=== PATIENT | female | born 1995 | race Caucasian/White ===

== ENCOUNTER 2019-07-11 13:16 | Emergency (ER) | payer OTHER ==
[~2019-07-11] VITALS: Ht 162.5 cm; Wt 54.5 kg
[2019-07-11 14:15] LABS: BASOPHILS % (AUTO) 0 % (0-10); EOSINOPHILS % (AUTO) 0 % (0-10); HEMATOCRIT 36 % (35-52); HEMOGLOBIN 12.4 G/DL (11.5-16.0); LYMPHOCYTES # (AUTO) 0.6 X 10^3 (1.0-4.0); LYMPHOCYTES % (AUTO) 5 % (12-44); MEAN CORPUSCULAR HEMOGLOBIN 29 PG (25-34); MEAN CORPUSCULAR HGB CONC 34 G/DL (32-36); MEAN CORPUSCULAR VOLUME 86 FL (80-99); MEAN PLATELET VOLUME 9.8 FL (7.4-10.4); MONOCYTES # (AUTO) 0.2 X 10^3 (0.0-1.0); MONOCYTES % (AUTO) 2 % (0-12); NEUTROPHILS % (AUTO) 93 % (42-75); PLATELET COUNT 246 10^3/uL (130-400); RED CELL DISTRIBUTION WIDTH 14.7 % (10.0-14.5); WHITE BLOOD COUNT 10.8 10^3/uL (4.3-11.0)
[2019-07-11] MEDS ORDERED: ONDANSETRON 4 MG/2 ML (SDV) Z0FRAN IVP ONE (14:15)
[2019-07-11] MEDS ORDERED: NS IV 1000 ML 1,000 ML IV SCH (14:15)
[2019-07-11 14:27] LABS: ALBUMIN 5.1 GM/DL (3.2-4.5); CHLORIDE 104 MMOL/L (98-107); POTASSIUM 3.2 MMOL/L (3.6-5.0); SODIUM 136 MMOL/L (135-145)
[2019-07-11 14:28] LABS: AMYLASE 40 U/L (25-125)
[2019-07-11 14:29] LABS: CALCIUM 9.7 MG/DL (8.5-10.1)
[2019-07-11 14:30] LABS: GLUCOSE 113 MG/DL (70-105); TOTAL PROTEIN 8.2 GM/DL (6.4-8.2)
[2019-07-11 14:31] LABS: CARBON DIOXIDE 15 MMOL/L (21-32)
[2019-07-11 14:32] LABS: BILIRUBIN,TOTAL 1.2 MG/DL (0.1-1.0)
[2019-07-11 14:33] LABS: ALKALINE PHOSPHATASE 59 U/L (40-136)
[2019-07-11 14:34] LABS: CREATININE SERUM 0.76 MG/DL (0.60-1.30); GFR ESTIMATED > 60
[2019-07-11 14:35] LABS: BUN/CREATININE RATIO 13
[2019-07-11 14:36] LABS: ALANINE AMINOTRANSFERASE 15 U/L (0-55)
[2019-07-11 14:37] LABS: LIPASE 13 U/L (8-78)
--- NOTE | 2019-07-11 14:53 | ED Abdominal Pain ---
General Chief Complaint: Abdominal/GI Problems Stated Complaint: VOMITING Nursing Triage Note: AMB TO ED TEARFUL AND APPEARS TO BE HYPERVENTLATING REPORTS HAVING FOR 12 HRS. Sepsis Screen: No Definite Risk Source of Information: Patient Exam Limitations: No Limitations History of Present Illness Date Seen by Provider: Jul 11, 2019 Time Seen by Provider: 13:41 Initial Comments 24-year-old female who presents to the emergency room with complaints of having nausea and vomiting that started 12 hours ago. She reports that she is very anxious at this time her nausea and vomiting. She reports that she just started her period yesterday and believes that this is causing her vomiting. Denies any fevers or diarrhea. She reports mild lower pelvic abdominal cramping. Timing/Duration: 12 Hours Associated Symptoms: Nausea/Vomiting Allergies and Home Medications Allergies Coded Allergies: No Known Drug Allergies (Unverified , 07/11/19) Home Medications Ondansetron 4 Mg Tab.rapdis, 4 MG PO Q4H PRN for NAUSEA/VOMITING Prescribed by: KRISTAN PIMENTEL on 07/11/19 1553 Promethazine HCl 25 Mg Tablet, 25 MG PO Q8H PRN for NAUSEA/VOMITING Prescribed by: JILL BOLTON on 07/12/19 0733 Patient Home Medication List Home Medication List Reviewed: Yes Review of Systems Review of Systems Constitutional: see HPI; No chills, No fever Gastrointestinal: See HPI, Abdominal Pain, Nausea, Vomiting All Other Systems Reviewed Negative Unless Noted: Yes Past Ejrwpho-Tndrks-Qwqxiz Hx Past Med/Social Hx: Reviewed Nursing Past Med/Soc Hx Patient Social History Alcohol Use: Occasionally Uses Recreational Drug Use: No Smoking Status: Never a Smoker Recent Foreign Travel: No Contact w/Someone Who Travel: No Recent Infectious Disease Expo: No Past Medical History Surgeries: No Respiratory: No Cardiac: No Neurological: No Last Menstrual Period: Jul 11, 2019 Genitourinary: No Gastrointestinal: No Musculoskeletal: No Endocrine: No Cancer: No Psychosocial: Yes Anxiety, Depression Integumentary: No Family Medical History Reviewed Nursing Family Hx Physical Exam Vital Signs Vital Signs - First Documented 07/11/19 07/11/19 13:52 16:16 Temp 37.0 Pulse 62 Resp 18 B/P (MAP) 140/105 (117) Pulse Ox 100 O2 Delivery Room Air Capillary Refill : Less Than 3 Seconds Height/Weight/BMI Height: '" Weight: lbs. oz. kg; 20.00 BMI Method: General Appearance: WD/WN, no apparent distress Respiratory: chest non-tender, lungs clear, normal breath sounds, no respiratory distress, no accessory muscle use Cardiovascular: normal peripheral pulses, regular rate, rhythm, no edema, no gallop, no JVD, no murmur Gastrointestinal: normal bowel sounds, non tender, soft, no organomegaly, no pulsatile mass Extremities: normal capillary refill Neurologic/Psychiatric: alert, normal mood/affect, oriented x 3 Skin: normal color, warm/dry Progress/Results/Core Measures Results/Orders Lab Results Laboratory Tests Test 07/11/19 14:00 07/11/19 14:57 Range/Units White Blood Count 10.8 4.3-11.0 10^3/uL Red Blood Count 4.24 L 4.35-5.85 10^6/uL Hemoglobin 12.4 11.5-16.0 G/DL Hematocrit 36 35-52 % Mean Corpuscular Volume 86 80-99 FL Mean Corpuscular Hemoglobin 29 25-34 PG Mean Corpuscular Hemoglobin Concent 34 32-36 G/DL Red Cell Distribution Width 14.7 H 10.0-14.5 % Platelet Count 246 130-400 10^3/uL Mean Platelet Volume 9.8 7.4-10.4 FL Neutrophils (%) (Auto) 93 H 42-75 % Lymphocytes (%) (Auto) 5 L 12-44 % Monocytes (%) (Auto) 2 0-12 % Eosinophils (%) (Auto) 0 0-10 % Basophils (%) (Auto) 0 0-10 % Neutrophils # (Auto) 10.0 H 1.8-7.8 X 10^3 Lymphocytes # (Auto) 0.6 L 1.0-4.0 X 10^3 Monocytes # (Auto) 0.2 0.0-1.0 X 10^3 Eosinophils # (Auto) 0.0 0.0-0.3 10^3/uL Basophils # (Auto) 0.0 0.0-0.1 10^3/uL Neutrophils % (Manual) 94 % Lymphocytes % (Manual) 4 % Band Neutrophils 2 % Blood Morphology Comment NORMAL Sodium Level 136 135-145 MMOL/L Potassium Level 3.2 L 3.6-5.0 MMOL/L Chloride Level 104 98-107 MMOL/L Carbon Dioxide Level 15 L 21-32 MMOL/L Anion Gap 17 H 5-14 MMOL/L Blood Urea Nitrogen 10 7-18 MG/DL Creatinine 0.76 0.60-1.30 MG/DL Estimat Glomerular Filtration Rate > 60 BUN/Creatinine Ratio 13 Glucose Level 113 H 70-105 MG/DL Calcium Level 9.7 8.5-10.1 MG/DL Corrected Calcium 8.5-10.1 MG/DL Total Bilirubin 1.2 H 0.1-1.0 MG/DL Aspartate Amino Transf (AST/SGOT) 18 5-34 U/L Alanine Aminotransferase (ALT/SGPT) 15 0-55 U/L Alkaline Phosphatase 59 40-136 U/L Total Protein 8.2 6.4-8.2 GM/DL Albumin 5.1 H 3.2-4.5 GM/DL Amylase Level 40 25-125 U/L Lipase 13 8-78 U/L Urine Color YELLOW Urine Clarity CLEAR Urine pH 6.5 5-9 Urine Specific [place] 1.020 1.016-1.022 Urine Protein 2+ H NEGATIVE Urine Glucose (UA) NEGATIVE NEGATIVE Urine Ketones 3+ H NEGATIVE Urine Nitrite NEGATIVE NEGATIVE Urine Bilirubin 1+ H NEGATIVE Urine Urobilinogen 0.2 < = 1.0 MG/DL Urine Leukocyte Esterase NEGATIVE NEGATIVE Urine RBC (Auto) 3+ H NEGATIVE Urine RBC 2-5 H /HPF Urine WBC 5-10 H /HPF Urine Squamous Epithelial Cells 5-10 /HPF Urine Crystals NONE /LPF Urine Amorphous Sediment FEW LEYDA URATES H /LPF Urine Bacteria FEW H /HPF Urine Casts NONE /LPF Urine Mucus LARGE H /LPF Urine Culture Indicated YES Micro Results Microbiology 07/11/19 Urine Culture - Final, Complete 3 or more isolates My Orders Orders - KRISTAN PIMENTEL Comprehensive Metabolic Panel (07/11/19 13:41) Lipase (07/11/19 13:41) Amylase (07/11/19 13:41) Ua Culture If Indicated (07/11/19 13:41) Urine Bedside (07/11/19 13:41) Ed Iv/Invasive Line Start (07/11/19 13:41) Cbc With Automated Diff (07/11/19 13:41) Ondansetron Injection (Zofran Injectio (07/11/19 14:15) Ns Iv 1000 Ml (Sodium Chloride 0.9%) (07/11/19 14:15) Manual Differential (07/11/19 14:00) Promethazine Injection (Phenergan Injec (07/11/19 15:15) Urine Culture (07/11/19 14:57) Potassium Chloride (Tablet) (K Dur Table (07/11/19 16:00) Medications Given in ED Vital Signs/I&O 07/11/19 07/11/19 13:52 16:16 Temp 37.0 Pulse 62 62 Resp 18 18 B/P (MAP) 140/105 (117) 120/70 Pulse Ox 100 99 O2 Delivery Room Air Blood Pressure Mean: 117 Progress Progress Note : Time: 15:51 Progress Note I have seen and evaluated the patient. She reports symptoms have improved after phenergan and zofran. She agrees with plan of care, plans for discharge, return precautions were given. Departure Impression Primary Impression: Nausea and vomiting Additional Impression: Menstrual cramp Disposition: 01 HOME, SELF-CARE Condition: Stable/Unchanged Departure-Patient Inst. Decision time for Depature: 15:51 Patient Instructions: Menstrual Cramps, Nausea and Vomiting, Adult Add. Discharge Instructions: Take medications as directed. Drink plenty of fluids to stay hydrated. Follow-up with your primary care provider within 1 week for recheck. Return back to the emergency room for worsening symptoms or concerns as needed. All discharge instructions reviewed with patient and/or family. Voiced understanding. Scripts Promethazine HCl (Promethazine Tablet) 25 Mg Tablet 25 MG PO Q8H PRN for NAUSEA/VOMITING, #14 TAB 0 Refills Prov: JILL BOLTON MD 07/12/19 Ondansetron (Ondansetron Odt) 4 Mg Tab.rapdis 4 MG PO Q4H PRN for NAUSEA/VOMITING for 10 Days, #30 TAB 0 Refills Prov: KRISTAN PIMENTEL 07/11/19 KRISTAN PIMENTEL Jul 11, 2019 14:53
[2019-07-11 15:03] LABS: BILIRUBIN,URINE 1+ (NEGATIVE); CLARITY,URINE CLEAR; COLOR,URINE YELLOW; GLUCOSE, URINE (UA) NEGATIVE (NEGATIVE); KETONES,URINE 3+ (NEGATIVE); LEUKOCYTE ESTERASE ,URINE NEGATIVE (NEGATIVE); NITRITE,URINE NEGATIVE (NEGATIVE); PH,URINE 6.5 (5-9); PROTEIN,URINE 2+ (NEGATIVE)
[2019-07-11 15:04] LABS: BAND NEUTROPHILS 2 %; LYMPHOCYTES % (MANUAL) 4 %; NEUTROPHILS % (MANUAL) 94 %
[2019-07-11 15:05] LABS: RBC MORPH NORMAL
[2019-07-11] MEDS ORDERED: PROMETHAZINE INJ 25 MG/ML (PHENERGAN) AMP IVP ONE (15:15)
[2019-07-11 15:20] LABS: AMORPHOUS SEDIMENT,UR FEW AMOR URATES /LPF; BACTERIA,URINE FEW /HPF
[2019-07-11] MEDS ORDERED: ONDA4TAB11 PO (15:53)
[2019-07-11] MEDS ORDERED: KCL 20 MEQ TAB (K-DUR) PO ONE (16:00)
[2019-07-11 16:16] VITALS: BP 120/70
[2019-07-12] MEDS ORDERED: PROM25TA14 PO (07:33)
== END 2019-07-11 16:21 | disposition home or self-care (01) ==
LOC: ER 13:17
DX: N94.6 Dysmenorrhea, unspecified (principal)
CPT/HCPCS: 36415; 80053; 81000; 82150; 83690; 84703; 85007; 85027; 87088

== ENCOUNTER 2020-01-06 12:20 | Emergency (ER) | payer OTHER ==
[~2020-01-06] VITALS: Ht 170.6 cm; Wt 47.6 kg
[~2020-01-06 12:20] MED LIST: ONDA4TAB11 PO; PROM25TA14 PO
--- NOTE | 2020-01-06 12:51 | ED Psychosocial ---
General Stated Complaint: SUICIDAL IDATIONS Source: patient Exam Limitations: no limitations History of Present Illness Date Seen by Provider: Jan 06, 2020 Time Seen by Provider: 12:51 Initial Comments This is a tearful 24-year-old female who presents to the ER with thoughts of suicidal ideation. She has a significant history of depression and has recently been changed from Zoloft to Lexapro over the past week. Reports over the past couple months she has been having increasing thoughts of depression which she attributes to increased stress with school and work. Has 2 suicide attempts in the past, one in April 2017 where she overdosed on pills and again in May 2017 at which time she cut her wrist. States she has a bottle of trazodone underneath her kitchen sink "just in case", that she has not been able to let herself throw away. Additionally, she states she has had thoughts of parking her car in front of a train track and waiting for a train to hit her car; and also wandering off into the [place] until she was too tired to find her way back home. Denies fevers, chills, cough, shortness of breath, abdominal pain, nausea, vomiting, diarrhea. Today she has an active plan of going home and taking her Trazodone pills. No homicidal ideation. Timing/Duration: just prior to arrival Severity: severe Associated Symptoms: anxiety, impaired concentration, suicidal ideation Allergies and Home Medications Allergies Coded Allergies: No Known Drug Allergies (Unverified , 07/11/19) Home Medications Ondansetron 4 Mg Tab.rapdis, 4 MG PO Q4H PRN for NAUSEA/VOMITING Prescribed by: KRISTAN PIMENTEL on 07/11/19 4960 Promethazine HCl 25 Mg Tablet, 25 MG PO Q8H PRN for NAUSEA/VOMITING Prescribed by: JILL BOLTON on 07/12/19 3035 Patient Home Medication List Home Medication List Reviewed: Yes Review of Systems Constitutional: see HPI EENTM: no symptoms reported Respiratory: no symptoms reported Cardiovascular: no symptoms reported Gastrointestinal: no symptoms reported Genitourinary: no symptoms reported Control/STD Prophylaxis: BC Pills Musculoskeletal: no symptoms reported Skin: no symptoms reported Psychiatric/Neurological: See HPI, Anxiety, Depressed Past Zrwbrhp-Ojdnkr-Qvvsvz Hx Past Medical History Surgeries: No Respiratory: No Cardiac: No Neurological: No Genitourinary: No Gastrointestinal: No Musculoskeletal: No Endocrine: No Cancer: No Psychosocial: Yes Anxiety, Depression Integumentary: No Physical Exam Vital Signs - First Documented 01/06/20 01/06/20 13:02 18:51 Temp 36.9 Pulse 96 Resp 20 B/P (MAP) 140/90 (107) Pulse Ox 100 O2 Delivery Room Air Capillary Refill : Height, Weight, BMI Height: '" Weight: lbs. oz. kg; 20.00 BMI Method: General Appearance: WD/WN, no apparent distress HEENT: PERRL/EOMI, normal ENT inspection Neck: full range of motion, normal inspection Respiratory: chest non-tender, lungs clear, normal breath sounds, no respiratory distress Cardiovascular: regular rate, rhythm, no murmur Gastrointestinal: normal bowel sounds, non tender, soft Extremities: normal range of motion, non-tender, normal inspection, no pedal edema, normal capillary refill Neurologic/Psychiatric: no motor/sensory deficits, alert, normal mood/affect, oriented x 3 Appearance/Memory: appropriate appearance, appropriate insight, denies illness Behavior/Eye Contact: cooperative, good eye contact, normal speech, other (tearful ) Skin: normal color, warm/dry Progress/Results/Core Measures Results/Orders Lab Results Laboratory Tests Test 01/06/20 12:57 01/06/20 14:04 01/06/20 17:35 Range/Units White Blood Count 6.7 4.3-11.0 10^3/uL Red Blood Count 4.22 3.80-5.11 10^6/uL Hemoglobin 12.4 11.5-16.0 g/dL Hematocrit 39 35-52 % Mean Corpuscular Volume 92 80-99 fL Mean Corpuscular Hemoglobin 29 25-34 pg Mean Corpuscular Hemoglobin Concent 32 32-36 g/dL Red Cell Distribution Width 12.5 10.0-14.5 % Platelet Count 262 130-400 10^3/uL Mean Platelet Volume 9.4 9.0-12.2 fL Immature Granulocyte % (Auto) 0 % Neutrophils (%) (Auto) 63 42-75 % Lymphocytes (%) (Auto) 26 12-44 % Monocytes (%) (Auto) 6 0-12 % Eosinophils (%) (Auto) 4 0-10 % Basophils (%) (Auto) 1 0-10 % Neutrophils # (Auto) 4.2 1.8-7.8 10^3/uL Lymphocytes # (Auto) 1.8 1.0-4.0 10^3/uL Monocytes # (Auto) 0.4 0.0-1.0 10^3/uL Eosinophils # (Auto) 0.3 0.0-0.3 10^3/uL Basophils # (Auto) 0.1 0.0-0.1 10^3/uL Immature Granulocyte # (Auto) 0.0 0.0-0.1 10^3/uL Sodium Level 139 135-145 MMOL/L Potassium Level 3.8 3.6-5.0 MMOL/L Chloride Level 105 98-107 MMOL/L Carbon Dioxide Level 23 21-32 MMOL/L Anion Gap 11 5-14 MMOL/L Blood Urea Nitrogen 13 7-18 MG/DL Creatinine 0.73 0.60-1.30 MG/DL Estimat Glomerular Filtration Rate > 60 BUN/Creatinine Ratio 18 Glucose Level 82 70-105 MG/DL Calcium Level 8.7 8.5-10.1 MG/DL Corrected Calcium 8.5 8.5-10.1 MG/DL Total Bilirubin 0.3 0.1-1.0 MG/DL Aspartate Amino Transf (AST/SGOT) 14 5-34 U/L Alanine Aminotransferase (ALT/SGPT) 10 0-55 U/L Alkaline Phosphatase 50 40-136 U/L Total Protein 7.3 6.4-8.2 GM/DL Albumin 4.3 3.2-4.5 GM/DL Salicylates Level < 5.0 L 5.0-20.0 MG/DL Acetaminophen Level < 10 L 10-30 UG/ML Serum Alcohol < 10 <10 MG/DL Urine Color YELLOW Urine Clarity CLEAR Urine pH 6.5 5-9 Urine Specific [place] 1.010 L 1.016-1.022 Urine Protein NEGATIVE NEGATIVE Urine Glucose (UA) NEGATIVE NEGATIVE Urine Ketones NEGATIVE NEGATIVE Urine Nitrite NEGATIVE NEGATIVE Urine Bilirubin NEGATIVE NEGATIVE Urine Urobilinogen 0.2 < = 1.0 MG/DL Urine Leukocyte Esterase NEGATIVE NEGATIVE Urine RBC (Auto) NEGATIVE NEGATIVE Urine RBC RARE /HPF Urine WBC RARE /HPF Urine Squamous Epithelial Cells 2-5 /HPF Urine Crystals NONE /LPF Urine Bacteria NEGATIVE /HPF Urine Casts NONE /LPF Urine Mucus NEGATIVE /LPF Urine Culture Indicated NO Urine Test NEGATIVE NEGATIVE Urine Opiates Screen NEGATIVE NEGATIVE Urine Oxycodone Screen NEGATIVE NEGATIVE Urine Methadone Screen NEGATIVE NEGATIVE Urine Propoxyphene Screen NEGATIVE NEGATIVE Urine Barbiturates Screen NEGATIVE NEGATIVE Ur Tricyclic Antidepressants Screen NEGATIVE NEGATIVE Urine Phencyclidine Screen NEGATIVE NEGATIVE Urine Amphetamines Screen NEGATIVE NEGATIVE Urine Methamphetamines Screen NEGATIVE NEGATIVE Urine Benzodiazepines Screen NEGATIVE NEGATIVE Urine Cocaine Screen NEGATIVE NEGATIVE Urine Cannabinoids Screen POSITIVE H NEGATIVE Coronavirus 2019 (JANNA) Negative Negative My Orders Orders - AMBROCIO GRAVES CLAY [employer] OPERATOR Ua Culture If Indicated (01/06/20 12:46) Cbc With Automated Diff (01/06/20 12:46) Comprehensive Metabolic Panel (01/06/20 12:46) Alcohol (01/06/20 12:46) Drug Screen Stat (Urine) (01/06/20 12:46) Acetaminophen (01/06/20 12:46) Salicylate (01/06/20 12:46) Ekg Tracing (01/06/20 12:46) Hcg,Qualitative Urine (01/06/20 12:46) General/Regular (01/06/20 Lunch) Ibuprofen Tablet (Motrin Tablet) (01/06/20 16:15) Covid 19 Inhouse Test (01/06/20 18:02) Medications Given in ED Current Medications Medications Dose Ordered Sig/Trudi Route Start Time Stop Time Status Last Admin Dose Admin Ibuprofen 400 mg ONCE ONCE PO 01/06/20 16:15 01/06/20 16:16 DC 01/06/20 17:45 400 MG Vital Signs/I&O 01/06/20 01/06/20 01/06/20 13:02 18:51 19:40 Temp 36.9 37.0 37.0 Pulse 96 73 73 Resp 20 16 16 B/P (MAP) 140/90 (107) 139/85 139/85 Pulse Ox 100 99 99 O2 Delivery Room Air Progress Progress Note : Progress Note Initiated medical screen upon ED arrival. Labs and UA reviewed and are unremarkable. RN called [facility] for screening. [facility] reviewed case with local inpatient psychiatric facilities. 183: Patient was accepted at [facility] in [facility]. No doctor to doct or required. Dr. Loredo accepting provider. Departure Impression Primary Impression: Suicidal ideation Additional Impression: Depression Disposition: XFER SHT-TRM HOSP Condition: Stable/Unchanged Transfer Transfer Reason: Exceeds level of care Time Spoke to Accepting Phy: 18:[address] Loredo at [facility] accepting patient transfer. Discharged with secure transport with Daniela Whitman. Transfer Time: 19:37 Transfer Facility: [place], [place] Method of Transfer: Secured Departure-Patient Inst. Decision time for Depature: 18:00 Referrals: NO,LOCAL PHYSICIAN (PCP/Family) Primary Care Physician Patient Instructions: Depression, Adult (DC), Suicide Prevention AMBROCIO GRAVES CLAY [employer] OPERATOR Jan 06, 2020 12:51
[2020-01-06 13:10] LABS: BASOPHILS # (AUTO) 0.1 10^3/uL (0.0-0.1); BASOPHILS % (AUTO) 1 % (0-10); EOSINOPHILS # (AUTO) 0.3 10^3/uL (0.0-0.3); EOSINOPHILS % (AUTO) 4 % (0-10); HEMATOCRIT 39 % (35-52); HEMOGLOBIN 12.4 g/dL (11.5-16.0); LYMPHOCYTES # (AUTO) 1.8 10^3/uL (1.0-4.0); LYMPHOCYTES % (AUTO) 26 % (12-44); MEAN CORPUSCULAR HEMOGLOBIN 29 pg (25-34); MEAN CORPUSCULAR HGB CONC 32 g/dL (32-36); MEAN CORPUSCULAR VOLUME 92 fL (80-99); MEAN PLATELET VOLUME 9.4 fL (9.0-12.2); MONOCYTES # (AUTO) 0.4 10^3/uL (0.0-1.0); MONOCYTES % (AUTO) 6 % (0-12); NEUTROPHILS # (AUTO) 4.2 10^3/uL (1.8-7.8); NEUTROPHILS % (AUTO) 63 % (42-75); PLATELET COUNT 262 10^3/uL (130-400); WHITE BLOOD COUNT 6.7 10^3/uL (4.3-11.0)
[2020-01-06 13:20] LABS: ALBUMIN 4.3 GM/DL (3.2-4.5); CHLORIDE 105 MMOL/L (98-107); POTASSIUM 3.8 MMOL/L (3.6-5.0); SODIUM 139 MMOL/L (135-145)
[2020-01-06 13:21] LABS: CALCIUM 8.7 MG/DL (8.5-10.1)
[2020-01-06 13:23] LABS: GLUCOSE 82 MG/DL (70-105); TOTAL PROTEIN 7.3 GM/DL (6.4-8.2)
[2020-01-06 13:24] LABS: BILIRUBIN,TOTAL 0.3 MG/DL (0.1-1.0); CARBON DIOXIDE 23 MMOL/L (21-32)
[2020-01-06 13:26] LABS: ALKALINE PHOSPHATASE 50 U/L (40-136); CREATININE SERUM 0.73 MG/DL (0.60-1.30); GFR ESTIMATED > 60
[2020-01-06 13:28] LABS: BUN/CREATININE RATIO 18
[2020-01-06 13:29] LABS: SALICYLATE < 5.0 MG/DL (5.0-20.0)
[2020-01-06 13:30] LABS: ACETAMINOPHEN < 10 UG/ML (10-30); ALANINE AMINOTRANSFERASE 10 U/L (0-55)
[2020-01-06 14:11] LABS: BILIRUBIN,URINE NEGATIVE (NEGATIVE); CLARITY,URINE CLEAR; COLOR,URINE YELLOW; GLUCOSE, URINE (UA) NEGATIVE (NEGATIVE); KETONES,URINE NEGATIVE (NEGATIVE); LEUKOCYTE ESTERASE ,URINE NEGATIVE (NEGATIVE); NITRITE,URINE NEGATIVE (NEGATIVE); PH,URINE 6.5 (5-9); PROTEIN,URINE NEGATIVE (NEGATIVE)
[2020-01-06 14:14] LABS: HCG,QUALITATIVE URINE NEGATIVE (NEGATIVE)
[2020-01-06 14:17] LABS: BACTERIA,URINE NEGATIVE /HPF; RBC,URINE RARE /HPF; WBC,URINE RARE /HPF
[2020-01-06 14:28] LABS: AMPHETAMINE SCREEN, URINE NEGATIVE (NEGATIVE); BARBITURATE SCREEN URINE NEGATIVE (NEGATIVE); BENZODIAZEPINES SCREEN URINE NEGATIVE (NEGATIVE); CANNABINOID SCREEN, URINE POSITIVE (NEGATIVE); COCAINE SCREEN URINE NEGATIVE (NEGATIVE); METHADONE STAT NEGATIVE (NEGATIVE); METHAMPHETAMINE SCREEN URINE S NEGATIVE (NEGATIVE); OPIATE SCREEN URINE NEGATIVE (NEGATIVE); OXYCODONE STAT NEGATIVE (NEGATIVE); PROPOXYPHENE STAT NEGATIVE (NEGATIVE); TRICYCLIC ANTIDEPRESSANTS SCRE NEGATIVE (NEGATIVE)
--- NOTE | 2020-01-06 15:20 | NUR ---
Patient using Zoom to speak with THerapist.
[2020-01-06] MEDS ORDERED: IBUPROFEN TABLET 200 MG TAB PO ONE (16:15)
--- NOTE | 2020-01-06 16:45 | NUR ---
Nursing notified waiting on intake
--- NOTE | 2020-01-06 18:00 | NUR ---
patient on phone with tano key
[2020-01-06 19:40] VITALS: BP 139/85
== END 2020-01-06 19:40 ==
LOC: EDUNIT# 12:20 → ER 12:21
DX: R45.851 Suicidal ideations (principal); F32.9 Major depressive disorder, single episode, unspecified; Z20.828 Contact with and (suspected) exposure to other viral communicable diseases
CPT/HCPCS: 80053; 80306; 81000; 84703; 85025; 99283; G0480 ×3; U0002; 36415; 80320; 80329; 87635; 93005

== ENCOUNTER 2020-03-13 21:48 | Emergency (ER) | payer OTHER ==
[~2020-03-13] VITALS: Ht 162 cm; Wt 49.8 kg
[2020-03-13 22:49] LABS: BASOPHILS # (AUTO) 0.1 10^3/uL (0.0-0.1); BASOPHILS % (AUTO) 1 % (0-10); EOSINOPHILS # (AUTO) 0.4 10^3/uL (0.0-0.3); EOSINOPHILS % (AUTO) 7 % (0-10); HEMATOCRIT 34 % (35-52); HEMOGLOBIN 11.1 g/dL (11.5-16.0); LYMPHOCYTES # (AUTO) 2.5 10^3/uL (1.0-4.0); LYMPHOCYTES % (AUTO) 44 % (12-44); MEAN CORPUSCULAR HEMOGLOBIN 30 pg (25-34); MEAN CORPUSCULAR HGB CONC 32 g/dL (32-36); MEAN CORPUSCULAR VOLUME 92 fL (80-99); MEAN PLATELET VOLUME 9.5 fL (9.0-12.2); MONOCYTES # (AUTO) 0.5 10^3/uL (0.0-1.0); MONOCYTES % (AUTO) 8 % (0-12); NEUTROPHILS # (AUTO) 2.2 10^3/uL (1.8-7.8); NEUTROPHILS % (AUTO) 39 % (42-75); PLATELET COUNT 310 10^3/uL (130-400); WHITE BLOOD COUNT 5.7 10^3/uL (4.3-11.0)
[2020-03-13 22:55] LABS: BILIRUBIN,URINE NEGATIVE (NEGATIVE); CLARITY,URINE CLEAR; COLOR,URINE YELLOW; GLUCOSE, URINE (UA) NEGATIVE (NEGATIVE); KETONES,URINE NEGATIVE (NEGATIVE); LEUKOCYTE ESTERASE ,URINE NEGATIVE (NEGATIVE); NITRITE,URINE NEGATIVE (NEGATIVE); PROTEIN,URINE NEGATIVE (NEGATIVE)
[2020-03-13 22:59] LABS: CHLORIDE 108 MMOL/L (98-107); SODIUM 140 MMOL/L (135-145)
[2020-03-13 23:00] LABS: ALBUMIN 4.2 GM/DL (3.2-4.5)
[2020-03-13 23:01] LABS: CALCIUM 9.3 MG/DL (8.5-10.1)
[2020-03-13 23:02] LABS: BACTERIA,URINE NEGATIVE /HPF; SQUAMOUS EPITHELIAL CELL,UR 0-2 /HPF; WBC,URINE 0-2 /HPF
[2020-03-13 23:02] LABS: GLUCOSE 90 MG/DL (70-105); TOTAL PROTEIN 6.7 GM/DL (6.4-8.2)
[2020-03-13 23:03] LABS: CARBON DIOXIDE 23 MMOL/L (21-32)
[2020-03-13 23:04] LABS: BILIRUBIN,TOTAL 0.4 MG/DL (0.1-1.0)
[2020-03-13 23:06] LABS: ALKALINE PHOSPHATASE 48 U/L (40-136); GFR ESTIMATED > 60
[2020-03-13 23:07] LABS: BUN/CREATININE RATIO 14
[2020-03-13 23:07] LABS: AMPHETAMINE SCREEN, URINE NEGATIVE (NEGATIVE); BARBITURATE SCREEN URINE NEGATIVE (NEGATIVE); BENZODIAZEPINES SCREEN URINE NEGATIVE (NEGATIVE); CANNABINOID SCREEN, URINE NEGATIVE (NEGATIVE); COCAINE SCREEN URINE NEGATIVE (NEGATIVE); METHADONE STAT NEGATIVE (NEGATIVE); METHAMPHETAMINE SCREEN URINE S NEGATIVE (NEGATIVE); OPIATE SCREEN URINE NEGATIVE (NEGATIVE); OXYCODONE STAT NEGATIVE (NEGATIVE); PROPOXYPHENE STAT NEGATIVE (NEGATIVE); TRICYCLIC ANTIDEPRESSANTS SCRE NEGATIVE (NEGATIVE)
[2020-03-13 23:09] LABS: ALANINE AMINOTRANSFERASE 11 U/L (0-55); SALICYLATE < 5.0 MG/DL (5.0-20.0)
[2020-03-13 23:19] LABS: ACETAMINOPHEN < 10 UG/ML (10-30)
--- NOTE | 2020-03-13 23:21 | ED Psychosocial ---
General Chief Complaint: Psych/Social Disorder Stated Complaint: SUICIDAL Nursing Triage Note: pt presents to ed from home with complaints of increased depression and suicidal ideation x 1 week. pt reports she last had in patient psych treatment 12/28-01/27 at [facility]. Pt reports she stopped taking her psych meds in the beggining of January because she doesnt like the way they make her feel. Pt reports she has had thoughts of overdosing on Tylenol. Source: patient Exam Limitations: no limitations History of Present Illness Date Seen by Provider: Mar 13, 2020 Time Seen by Provider: 22:36 Initial Comments Patient arrives ER by private conveyance with chief complaint several weeks of depression and suicidal ideation. She has a plan to take all the Tylenol in her house. She has been doing some self-mutilation by cutting on her left forearm but nowhere else. She is not having any hallucinations or homicidal thoughts just suicidal thoughts and morbid ideation. She says is been going on for years and she has been treated by her primary care doctor with Lexapro. She says the Lexapro was giving her insomnia so she went to [facility] in December 2019 but they did not take her off her Lexapro so she self discontinued the medication about a month ago. She has not seen anybody else for help since then. She is not in counseling. She is a student [employer] originally from [place]. Allergies and Home Medications Allergies Coded Allergies: No Known Drug Allergies (Unverified , 07/11/19) Home Medications Ondansetron 4 Mg Tab.rapdis, 4 MG PO Q4H PRN for NAUSEA/VOMITING Prescribed by: KRISTAN PIMENTEL on 07/11/19 3105 Promethazine HCl 25 Mg Tablet, 25 MG PO Q8H PRN for NAUSEA/VOMITING Prescribed by: JILL BOLTON on 07/12/19 6192 Patient Home Medication List Home Medication List Reviewed: Yes Review of Systems Constitutional: No chills, No diaphoresis EENTM: No ear discharge, No ear pain Respiratory: No cough, No short of breath Cardiovascular: No edema, No Hx of Intervention, No palpitations Gastrointestinal: No abdominal pain, No nausea, No vomiting Genitourinary: No discharge, No dysuria : No Control/STD Prophylaxis: None Musculoskeletal: No back pain, No joint pain Psychiatric/Neurological: Anxiety, Depressed All Other Systems Reviewed Negative Unless Noted: Yes Past Rnqezqv-Oljyhm-Xpmyad Hx Patient Social History Alcohol Use: Denies Use Drug of Choice: marijuana- last used 12/28 Smoking Status: Never a Smoker Recent Infectious Disease Expo: No Past Medical History Surgeries: Yes (wisdon teeth) Respiratory: No Cardiac: No Neurological: No Genitourinary: No Gastrointestinal: No Musculoskeletal: No Endocrine: No Cancer: No Psychosocial: Yes Anxiety, PTSD, Depression Integumentary: No Blood Disorders: No Adverse Reaction/Blood Tranf: No Physical Exam Vital Signs - First Documented 03/13/20 22:26 Temp 36.3 Pulse 83 Resp 16 B/P (MAP) 123/75 (91) Pulse Ox 95 Capillary Refill : Less Than 3 Seconds Height, Weight, BMI Height: '" Weight: lbs. oz. kg; 18.00 BMI Method: General Appearance: WD/WN, mild distress HEENT: PERRL/EOMI, pharynx normal Neck: full range of motion, normal inspection Respiratory: no respiratory distress, no accessory muscle use Cardiovascular: normal peripheral pulses, regular rate, rhythm Neurologic/Psychiatric: alert, oriented x 3, other (Depressed affect, occasionally tearful, endorsing suicidal ideation) Appearance/Memory: appropriate appearance, appropriate insight Behavior/Eye Contact: cooperative, good eye contact, normal speech Thoughts/Hallucinations: normal thought pattern, no apparent hallucination Skin: normal color, warm/dry, other (Approximately 10 superficial abrasions on the left palmar wrist) Progress/Results/Core Measures Results/Orders Lab Results Laboratory Tests Test 03/13/20 22:36 03/13/20 22:49 03/13/20 23:06 Range/Units White Blood Count 5.7 4.3-11.0 10^3/uL Red Blood Count 3.74 L 3.80-5.11 10^6/uL Hemoglobin 11.1 L 11.5-16.0 g/dL Hematocrit 34 L 35-52 % Mean Corpuscular Volume 92 80-99 fL Mean Corpuscular Hemoglobin 30 25-34 pg Mean Corpuscular Hemoglobin Concent 32 32-36 g/dL Red Cell Distribution Width 13.4 10.0-14.5 % Platelet Count 310 130-400 10^3/uL Mean Platelet Volume 9.5 9.0-12.2 fL Immature Granulocyte % (Auto) 0 % Neutrophils (%) (Auto) 39 L 42-75 % Lymphocytes (%) (Auto) 44 12-44 % Monocytes (%) (Auto) 8 0-12 % Eosinophils (%) (Auto) 7 0-10 % Basophils (%) (Auto) 1 0-10 % Neutrophils # (Auto) 2.2 1.8-7.8 10^3/uL Lymphocytes # (Auto) 2.5 1.0-4.0 10^3/uL Monocytes # (Auto) 0.5 0.0-1.0 10^3/uL Eosinophils # (Auto) 0.4 H 0.0-0.3 10^3/uL Basophils # (Auto) 0.1 0.0-0.1 10^3/uL Immature Granulocyte # (Auto) 0.0 0.0-0.1 10^3/uL Sodium Level 140 135-145 MMOL/L Potassium Level 4.0 3.6-5.0 MMOL/L Chloride Level 108 H 98-107 MMOL/L Carbon Dioxide Level 23 21-32 MMOL/L Anion Gap 9 5-14 MMOL/L Blood Urea Nitrogen 10 7-18 MG/DL Creatinine 0.70 0.60-1.30 MG/DL Estimat Glomerular Filtration Rate > 60 BUN/Creatinine Ratio 14 Glucose Level 90 70-105 MG/DL Calcium Level 9.3 8.5-10.1 MG/DL Corrected Calcium 9.1 8.5-10.1 MG/DL Total Bilirubin 0.4 0.1-1.0 MG/DL Aspartate Amino Transf (AST/SGOT) 14 5-34 U/L Alanine Aminotransferase (ALT/SGPT) 11 0-55 U/L Alkaline Phosphatase 48 40-136 U/L Total Protein 6.7 6.4-8.2 GM/DL Albumin 4.2 3.2-4.5 GM/DL Salicylates Level < 5.0 L 5.0-20.0 MG/DL Acetaminophen Level < 10 L 10-30 UG/ML Serum Alcohol < 10 <10 MG/DL Urine Color YELLOW Urine Clarity CLEAR Urine pH 7.0 5-9 Urine Specific [place] 1.010 L 1.016-1.022 Urine Protein NEGATIVE NEGATIVE Urine Glucose (UA) NEGATIVE NEGATIVE Urine Ketones NEGATIVE NEGATIVE Urine Nitrite NEGATIVE NEGATIVE Urine Bilirubin NEGATIVE NEGATIVE Urine Urobilinogen 0.2 < = 1.0 MG/DL Urine Leukocyte Esterase NEGATIVE NEGATIVE Urine RBC (Auto) NEGATIVE NEGATIVE Urine RBC NONE /HPF Urine WBC 0-2 /HPF Urine Squamous Epithelial Cells 0-2 /HPF Urine Crystals NONE /LPF Urine Bacteria NEGATIVE /HPF Urine Casts NONE /LPF Urine Mucus NEGATIVE /LPF Urine Culture Indicated NO Urine Test NEGATIVE NEGATIVE Urine Opiates Screen NEGATIVE NEGATIVE Urine Oxycodone Screen NEGATIVE NEGATIVE Urine Methadone Screen NEGATIVE NEGATIVE Urine Propoxyphene Screen NEGATIVE NEGATIVE Urine Barbiturates Screen NEGATIVE NEGATIVE Ur Tricyclic Antidepressants Screen NEGATIVE NEGATIVE Urine Phencyclidine Screen NEGATIVE NEGATIVE Urine Amphetamines Screen NEGATIVE NEGATIVE Urine Methamphetamines Screen NEGATIVE NEGATIVE Urine Benzodiazepines Screen NEGATIVE NEGATIVE Urine Cocaine Screen NEGATIVE NEGATIVE Urine Cannabinoids Screen NEGATIVE NEGATIVE Coronavirus 2019 (JANNA) Negative Negative My Orders Orders - KAN TABARES Ua Culture If Indicated (03/13/20 22:15) Cbc With Automated Diff (03/13/20 22:15) Comprehensive Metabolic Panel (03/13/20 22:15) Alcohol (03/13/20 22:15) Drug Screen Stat (Urine) (03/13/20 22:15) Acetaminophen (03/13/20 22:15) Salicylate (03/13/20 22:15) Ekg Tracing (03/13/20 22:15) Monitor-Rhythm Ecg Trace Only (03/13/20 22:15) Bh Status Checks/Observation Q15M (03/13/20 22:15) Covid 19 Inhouse Test (03/13/20 23:04) Hcg,Qualitative Urine (03/13/20 23:05) Lorazepam Injection (Ativan Injection) (03/13/20 23:30) Lorazepam Tablet (Ativan Tablet) (03/13/20 23:45) Lorazepam Tablet (Ativan Tablet) (03/13/20 23:33) Medications Given in ED Current Medications Medications Dose Ordered Sig/Trudi Route Start Time Stop Time Status Last Admin Dose Admin Lorazepam 0.5 mg ONCE ONCE PO 03/13/20 23:45 03/13/20 23:46 DC 03/13/20 23:37 0.5 MG Vital Signs/I&O 03/13/20 22:26 Temp 36.3 Pulse 83 Resp 16 B/P (MAP) 123/75 (91) Pulse Ox 95 Blood Pressure Mean: 91 Progress Progress Note #1: Time: 23:24 Progress Note Suicidal ideation with a stated plan. We will attempt to find her some i npatient placement which is what she desires. She is voluntary at this time. Covid is pending but the rest of her labs are unremarkable. EKG unremarkable. Progress Note #2: Time: 23:57 Progress Note Hayden: No availability, call back after 10. Tanvi: No availability, call back after 10 AM. Faxed information to [facility]. Progress Note #3: Time: 05:44 Progress Note Patient has been sleeping, easily arousable, cooperative and without hallucination. She still endorses her voluntary wishes to go inpatient. Expect private conveyance to arrive in the next 15 minutes. She has been dressed and is ready to go. Initial ECG Impression Date: Mar 13, 2020 Initial ECG Impression Time: 22:42 Initial ECG Rate: 55 Initial ECG Rhythm: Normal Sinus Initial ECG Intervals: Normal Initial ECG Impression: Normal Initial ECG Comparisson: No Previous ECG Available Comment Normal sinus rhythm without clinically relevant ST changes. Departure Impression Primary Impression: Suicidal ideation Additional Impression: Depression Qualified Codes: F32.9 - Major depressive disorder, single episode, unspecified Disposition: 65 XFER TO PSYCH HOSP/UNIT Condition: Stable Transfer Transfer Reason: Exceeds level of care Time Spoke to Accepting Phy: 01:[address] Ritchie Branham at [place], [place] accepts the patient for inpatient psychiatric care. Daniela Whitman agrees to transport. Plans to be here around 0600. Transfer Time: 06:00 Transfer Facility: [place], [place]. Method of Transfer: Private Vehicle Departure-Patient Inst. Referrals: NO,LOCAL PHYSICIAN (PCP/Family) Primary Care Physician Work/School Note: Work Release Form Date Seen in the Emergency Department: Mar 14, 2020 Return to Work: Mar 18, 2020 Restrictions: No Restrictions KAN TABARES Mar 13, 2020 23:21
[2020-03-13] MEDS ORDERED: LORazepam INJ 2 MG/ML (ATIVAN) VIAL IVP ONE (23:30)
[2020-03-13] MEDS ORDERED: LORazepam 0.5 MG (ATIVAN) TABLET ONE (23:33)
[2020-03-13] MEDS ORDERED: LORazepam 0.5 MG (ATIVAN) TABLET PO ONE (23:45)
--- NOTE | 2020-03-14 00:25 | NUR ---
PT CHART SENT TO [facility] IN [place], [place] FOR REVIEW FOR POSSIBLE ADMITTANCE.
--- NOTE | 2020-03-14 01:18 | NUR ---
NAYELI WITH [facility] CALLED TO INFORM PT HAS BEEN ACCEPTED BY DR. ZARINA FERGUSON. ROOM #302.2. RN TO RN REPORT [phone]. DR. TABARES NOTIFIED.
--- NOTE | 2020-03-14 01:39 | NUR ---
BUNNY BOWMAN, SECURE TRANSPORT, NOTIFIED OF NEED OF TRANSFER TO [facility] IN [place], [place]. BUNNY STATES HE WILL BE ABLE TO TAKE PT APPROX 0600. DR. TABARES NOTIFIED.
[2020-03-14 05:59] VITALS: BP 102/64
--- NOTE | 2020-03-14 05:59 | NUR ---
BUNNY BOWMAN, SECURE TRANSPORT, HERE AT THIS TIME FOR TRANSPORT TO [place], [place]. ALL BELONGINGS WITH PT ON TRANSPORT FROM ER.
== END 2020-03-14 05:59 ==
LOC: EDUNIT# 21:48 → ER 21:50
DX: S51.802A Unspecified open wound of left forearm, initial encounter (principal); R45.851 Suicidal ideations; F32.9 Major depressive disorder, single episode, unspecified; T43.226A Underdosing of selective serotonin reuptake inhibitors, initial encounter; F43.10 Post-traumatic stress disorder, unspecified; Z91.14 Patient's other noncompliance with medication regimen; Z20.822 Contact with and (suspected) exposure to COVID-19; Z32.02 Encounter for pregnancy test, result negative; X78.9XXA Intentional self-harm by unspecified sharp object, initial encounter
CPT/HCPCS: 80053; 80306; 81000; 84703; 85025; 93005; 93041; 99283; G0480 ×3; U0002; 36415; 80320; 80329; 87635

== ENCOUNTER 2020-10-03 14:23 | Emergency (ER) | payer OTHER ==
--- OUTSIDE RECORDS SUMMARY | 2020-10-03 14:28 | XMS REPORT | Clinical Summary ---
Author Author [facility] Address Unknown Phone Unavailable Care Team Providers Care Digital Photographic Printer Name Role Phone Unassigned, None PCP Unavailable Allergies No known active allergies Medications End Date Status Medication Sig Dispensed Refills Start Date Active calcium carbonate (TUMS) Chew 1 tablet 0 01/08 500 MG chewable tablet (500 mg 0 total) daily as needed for Heartburn. Active pantoprazole (PROTONIX) Take 1 tablet 30 tablet 0 40 MG tabletIndications: (40 mg total) 0 Gastroesophageal Reflux by mouth Disease every morning before breakfast. 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 Depressive Disorder Indications: Generalized Anxiety Disorder, Major Depressive Disorder Active Problems Problem Noted Date PTSD (post-traumatic stress disorder) 01/11/2020 COLTEN (generalized anxiety disorder) 01/10/2020 Suicidal ideation 01/10/2020 Cannabis use disorder, moderate, dependence 01/08/20 20 History of gastritis 01/08/2020 Overview: Formatting of this note might be differ ent from the original. Had EGD during summer in [facility] showing nonspecific gastritis Psychophysiological insomnia 01/08/2020 Intractable nausea and vomiting 01/07/2020 Severe episode of recurrent major depressive disorder , without psychotic 01/07/2020 features Cannabis hyperemesis syndrome concurrent with and due to cannabis abuse 01/07/2020 Resolved Problems Problem Noted Date Resolved Date Hypokalemia 01/08/2020 01/08/2020 Metabolic acidosis 01/08/2020 01/08/2020 Social History Date Tobacco Use Types Packs/Day Years Used Never Smoker Smokeless Tobacco: Never Used Comments Alcohol Use Standard Drinks/Week Never 0 (1 standard drink = 0.6 o z pure alcohol) Alcohol Habits Answer Date Recorded How often do you have a drink containing alcohol? Never 01/07/2020 How many drinks containing alcohol do you have on No t asked a typical day when you are drinking? How often do you have six or more drinks on one Not asked occasion? Control Partners Comments Sexually Active Male Yes Sex Assigned at Date Recorded Female 01/11/2020 1:29 AM [employer] Industry Job Start Date Occupation Not on file Not on file Not on file Last Filed Vital Signs Reading Time Taken Comments Vital Sign 156/87 01/11/2020 10:15 AM [employer] WORK[employer] Blood Pressure 89 01/11/2020 10:15 AM [employer]ARE WORKER Pulse 37.2 C (98.9 F) 01/11/2020 7:43 AM [employer]ARE WORKER Temperature 18 01/11/2020 10:15 AM [employer]ARE WORKER Respiratory Rate 100% 01/11/2020 7:43 AM TARE WORKER Oxygen Saturation - - Inhaled Oxygen Concentration 54.4 kg (120 lb) 01/10/2020 8:07 PM TARE WORKER Weight 162.6 cm (5' 4") 01/10/2020 8:07 PM [employer]ARE WORKER Height 20.6 01/10/2020 8:07 PM TARE WORKER Body Mass Index Plan of Treatment Health Maintenance Due Date Last Done Comments HPV Vaccines (1 - 2-dose 2008 series) COVID-19 Vaccine (1) 2009 Hepatitis C Screening 06/27/2015 DTaP,Tdap,and Td Vaccines 2016 (1 - Tdap) MMR Vaccines-Adult 2016 Cervical Cancer Screening 2018 Influenza Vaccine (#1) 2020 10/05/2019, 11/24/2018, 03/07/2018, Additional history exists Pneumo-Vaccine: 65+Yrs (1 2062 of 1 - PPSV23) Varicella Vaccines Completed 09/12/1998, 07/11/1998 HIB Vaccines Aged Out No longer eligible based on patient's age to complete this topic IPV Vaccines Aged Out No longer eligible based on patient's age to complete this topic MenB Vaccine (Bexsero) Aged Out No longer eligi ble based on patient's age to complete this topic Meningococcal Vaccine Aged Out No longer eligib le based on patient's age to complete this topic Pneumo-Vaccine: Peds (0-5 Aged Out No longer el igible based on patient's age to Yrs) & At-Risk Patients complete this topic (6-64 Yrs) Rotavirus Vaccines Aged Out No longer eligible based on patient's age to complete this topic Results Not on filefrom Last 3 Months Insurance Type Payer Benefit Subscriber ID Effective Phone Address Plan / Dates Group UMR UMR [id number] 2019-P [phone] [address] [address] [place] [address] Advance Directives For more information, please contact: [phone] Patient Payroll Director Explanation Type Date Recorded Advance Directives and Living Will Power of Surveillance Manager Date Inactivated Comments Code Status Date Activated Full Code 01/11/2020 2:28 PM 01/11/2020 2:28 PM Full Code 01/10/2020 8:45 PM 01/10/2020 7:49 PM Full Code 01/10/2020 1:43 PM 01/10/2020 1:43 PM Full Code 01/08/2020 10:21 AM 01/08/2020 10:21 AM Full Code 01/07/2020 1:46 AM Care Teams Start Date End Date Digital Photographic Printer Relationship Specialty 01/10/20 Unassigned, None PCP - General [place]
== END 2020-10-03 15:10 | disposition left against medical advice (07) ==
LOC: EDUNIT# 14:23 → ER 14:24
DX: R45.851 Suicidal ideations (principal)

== ENCOUNTER 2021-03-21 15:35 | Emergency (ER) | payer OTHER ==
[~2021-03-21] VITALS: Ht 167 cm; Wt 51.0 kg
--- NOTE | 2021-03-21 15:56 | ED Abdominal Pain ---
General Chief Complaint: Abdominal/GI Problems Stated Complaint: SYNCOPE Source of Information: Patient Exam Limitations: No Limitations History of Present Illness Date Seen by Provider: Mar 21, 2021 Time Seen by Provider: 15:53 Initial Comments To ER with reports of syncope with nausea vomiting. She has been having some epigastric and right upper quadrant abdominal pain. No fever no chills. She does smoke marijuana. She has a history of cyclic vomiting syndrome. She has noticed some association between marijuana use and vomiting. Timing/Duration: 1-2 Days Severity/Quality: Moderate Location: RUQ, Epigastric Radiation: No Radiation Activities at Onset: None Associated Symptoms: Nausea/Vomiting Allergies and Home Medications Allergies Coded Allergies: No Known Drug Allergies (Unverified , 07/11/19) Patient Home Medication List Home Medication List Reviewed: Yes Ondansetron (Ondansetron Odt) 4 Mg Tab.rapdis, 4 MG PO Q4H PRN for NAUSEA/VOMITING Prescribed by: KRISTAN PIMENTEL on 07/11/19 1553 Prochlorperazine Maleate (Compazine) 10 Mg Tablet, 10 MG PO TID PRN for NAUSEA/VOMITING Prescribed by: PUNEET BOLAÑOS on 03/21/21 1718 Promethazine HCl (Promethazine Tablet) 25 Mg Tablet, 25 MG PO Q8H PRN for NAUSEA/VOMITING Prescribed by: JILL BOLTON on 07/12/19 0733 Review of Systems Review of Systems Constitutional: see HPI EENTM: No Symptoms Reported Respiratory: No Symptoms Reported Cardiovascular: No Symptoms Reported Gastrointestinal: See HPI, Abdominal Pain, Nausea, Vomiting Genitourinary: No Symptoms Reported Musculoskeletal: no symptoms reported Skin: no symptoms reported Psychiatric/Neurological: No Symptoms Reported Endocrine: No Symptoms Reported Hematologic/Lymphatic: No Symptoms Reported Past Liylrot-Lwlcij-Shppsv Hx Patient Social History Tobacco Use?: No Substance use?: Yes Substance type: Marijuana Alcohol Use?: No Past Medical History Surgeries: Yes (wisdon teeth) Respiratory: No Cardiac: No Neurological: No Genitourinary: No Gastrointestinal: No Musculoskeletal: No Endocrine: No Cancer: No Psychosocial: Yes Anxiety, PTSD, Depression Integumentary: No Blood Disorders: No Adverse Reaction/Blood Tranf: No Physical Exam Vital Signs Capillary Refill : Height/Weight/BMI Height: '" Weight: lbs. oz. kg; 18.00 BMI Method: General Appearance: WD/WN, no apparent distress, other (She had a liter of IV fluids initiated by EMS but has not yet had nausea medication or pain medication. Given her history of recurrent nausea vomiting abdominal pain associate with marijuana use droperidol is very effective for that. We will give her low-dose at 1.5 mg IV push and see if this helps with her symptoms.) Neck: non-tender, full range of motion Respiratory: normal breath sounds, no respiratory distress, no accessory muscle use Gastrointestinal: normal bowel sounds, soft, tenderness Neurologic/Psychiatric: alert, normal mood/affect, oriented x 3 Skin: normal color, warm/dry Progress/Results/Core Measures Results/Orders Lab Results Laboratory Tests Test 03/21/21 16:00 03/21/21 16:40 Range/Units White Blood Count 7.6 4.3-11.0 10^3/uL Red Blood Count 3.47 L 3.80-5.11 10^6/uL Hemoglobin 9.9 L 11.5-16.0 g/dL Hematocrit 30 L 35-52 % Mean Corpuscular Volume 86 80-99 fL Mean Corpuscular Hemoglobin 29 25-34 pg Mean Corpuscular Hemoglobin Concent 33 32-36 g/dL Red Cell Distribution Width 14.3 10.0-14.5 % Platelet Count 241 130-400 10^3/uL Mean Platelet Volume 9.7 9.0-12.2 fL Immature Granulocyte % (Auto) 0 % Neutrophils (%) (Auto) 84 H 42-75 % Lymphocytes (%) (Auto) 12 12-44 % Monocytes (%) (Auto) 4 0-12 % Eosinophils (%) (Auto) 0 0-10 % Basophils (%) (Auto) 0 0-10 % Neutrophils # (Auto) 6.3 1.8-7.8 X 10^3 Lymphocytes # (Auto) 0.9 L 1.0-4.0 X 10^3 Monocytes # (Auto) 0.3 0.0-1.0 X 10^3 Eosinophils # (Auto) 0.0 0.0-0.3 10^3/uL Basophils # (Auto) 0.0 0.0-0.1 10^3/uL Immature Granulocyte # (Auto) 0.0 0.0-0.1 10^3/uL Sodium Level 135 135-145 MMOL/L Potassium Level 3.0 L 3.6-5.0 MMOL/L Chloride Level 103 98-107 MMOL/L Carbon Dioxide Level 22 21-32 MMOL/L Anion Gap 10 5-14 MMOL/L Blood Urea Nitrogen 11 7-18 MG/DL Creatinine 0.64 0.60-1.30 MG/DL Estimat Glomerular Filtration Rate 127 BUN/Creatinine Ratio 17 Glucose Level 101 70-105 MG/DL Calcium Level 8.7 8.5-10.1 MG/DL Corrected Calcium 8.5 8.5-10.1 MG/DL Total Bilirubin 0.7 0.1-1.0 MG/DL Aspartate Amino Transf (AST/SGOT) 13 5-34 U/L Alanine Aminotransferase (ALT/SGPT) 10 0-55 U/L Alkaline Phosphatase 46 40-136 U/L Total Protein 6.7 6.4-8.2 GM/DL Albumin 4.2 3.2-4.5 GM/DL Lipase 22 8-78 U/L Serum Test, Qualitative NEGATIVE NEGATIVE Urine Color YELLOW Urine Clarity CLEAR Urine pH 7.5 5-9 Urine Specific Roberta 1.010 L 1.016-1.022 Urine Protein NEGATIVE NEGATIVE Urine Glucose (UA) NEGATIVE NEGATIVE Urine Ketones NEGATIVE NEGATIVE Urine Nitrite NEGATIVE NEGATIVE Urine Bilirubin NEGATIVE NEGATIVE Urine Urobilinogen 1.0 < = 1.0 MG/DL Urine Leukocyte Esterase NEGATIVE NEGATIVE Urine RBC (Auto) NEGATIVE NEGATIVE Urine RBC NONE /HPF Urine WBC 0-2 /HPF Urine Crystals PRESENT H /LPF Urine Amorphous Sediment MOD LEYDA PHOSPHATE H /LPF Urine Bacteria TRACE /HPF Urine Casts NONE /LPF Urine Mucus NEGATIVE /LPF Urine Culture Indicated NO Urine Opiates Screen NEGATIVE NEGATIVE Urine Oxycodone Screen NEGATIVE NEGATIVE Urine Methadone Screen NEGATIVE NEGATIVE Urine Propoxyphene Screen NEGATIVE NEGATIVE Urine Barbiturates Screen NEGATIVE NEGATIVE Ur Tricyclic Antidepressants Screen NEGATIVE NEGATIVE Urine Phencyclidine Screen NEGATIVE NEGATIVE Urine Amphetamines Screen NEGATIVE NEGATIVE Urine Methamphetamines Screen NEGATIVE NEGATIVE Urine Benzodiazepines Screen NEGATIVE NEGATIVE Urine Cocaine Screen NEGATIVE NEGATIVE Urine Cannabinoids Screen POSITIVE H NEGATIVE My Orders Orders - PUNEET BOLAÑOS [employer]RECTION[employer]OOK Ua Culture If Indicated (03/21/21 15:48) Hcg,Qualitative Serum (03/21/21 15:48) Cbc With Automated Diff (03/21/21 15:48) Comprehensive Metabolic Panel (03/21/21 15:48) Lipase (03/21/21 15:48) Ed Iv/Invasive Line Start (03/21/21 15:48) Droperidol Inj (Ed Only) (Inapsine Inj ( (03/21/21 16:00) Us Gallbladder [id number] (03/21/21 15:56) Drug Screen Stat (Urine) (03/21/21 16:40) Lorazepam Injection (Ativan Injection) (03/21/21 16:45) Medications Given in ED Current Medications Medications Dose Ordered Sig/Trudi Route Start Time Stop Time Status Last Admin Dose Admin Droperidol 1.5 mg ONCE ONCE IV 03/21/21 16:00 03/21/21 16:01 DC 03/21/21 16:05 1.5 MG Lorazepam 1 mg ONCE PRN IVP 03/21/21 16:45 03/21/21 16:57 1 MG Departure Communication (Admissions) Family Conversation [id number] this time after 1.5 mg of IV droperidol, 1 L of LR and 1 mg of IV lorazepam she reports that she is feeling "a lot better". We will discharged home. Discussed with her the likely relationship of the marijuana use that is pretty frequent to her recurrent symptoms. She states that hot showers do help. NAME: DENIS [facility]U [facility] REC#: [id number] PT STATUS: REG ER : 1995 PHYSICIAN: PUNEET BOLAÑOS APRN ADMIT DATE: 03/21/21/ER Signed Date of Exam:03/21/21 US GALLBLADDER [id number] PROCEDURE: US Gallbladder. TECHNIQUE: Multiple real-time grayscale images were obtained over the right upper quadrant in various projections. INDICATION: Liver appears normal. Portal vein is patent with hepatopetal flow. The gallbladder is clear with no stones or wall thickening. The common duct is not dilated. The pancreas appears normal. Aorta and IVC appear normal. Right kidney measures 10.5 cm length and appears normal. There is no ascites. IMPRESSION: Unremarkable gallbladder ultrasound Dictated by: Dictated on workstation # [id number] Dict: 03/21/[id number] Trans: 03/21/211650 TCB [id number] Interpreted by: JILL ROMEO MD Electronically signed by: JILL ROMEO MD 02/11/22 1651 Impression Primary Impression: Nausea and vomiting Additional Impression: Abdominal pain Disposition: HOME, SELF-CARE Condition: Stable Departure-Patient Inst. Decision time for Depature: 16:59 Referrals: NO,LOCAL PHYSICIAN (PCP/Family) Primary Care Physician Patient Instructions: No Instuctions Given Add. Discharge Instructions: 1. There is a pretty common condition called hyperemesis cannabinoid syndrome (you can google this). It tends to present with recurrent nausea and vomiting as well as abdominal pain and is associated with excess marijuana use. Try to reduce your marijuana intake. Many people noticed that hot showers are helpful. Another helpful thing to do is to rub some topical capsaicin cream on the abdominal wall. Follow-up with your doctor next week. Return to ER for any concerns. All discharge instructions reviewed with patient and/or family. Voiced understanding. Scripts Prochlorperazine Maleate (Compazine) 10 Mg Tablet 10 MG PO TID PRN for NAUSEA/VOMITING, #14 TAB Prov: PUNEET BOLAÑOS APRN 03/21/21 Work/School Note: Work Release Form Date Seen in the Emergency Department: Mar 21, 2021 Return to Work: Mar 23, 2021 PUNEET BOLAÑOS APRN Mar 21, 2021 15:56
[2021-03-21] MEDS ORDERED: DROPERIDOL 5 MG/2 ML (INAPSINE) ED ONLY! IV ONE (16:00)
[2021-03-21 16:06] LABS: BASOPHILS % (AUTO) 0 % (0-10); EOSINOPHILS % (AUTO) 0 % (0-10); HEMATOCRIT 30 % (35-52); HEMOGLOBIN 9.9 g/dL (11.5-16.0); LYMPHOCYTES # (AUTO) 0.9 X 10^3 (1.0-4.0); LYMPHOCYTES % (AUTO) 12 % (12-44); MEAN CORPUSCULAR HEMOGLOBIN 29 pg (25-34); MEAN CORPUSCULAR HGB CONC 33 g/dL (32-36); MEAN CORPUSCULAR VOLUME 86 fL (80-99); MEAN PLATELET VOLUME 9.7 fL (9.0-12.2); MONOCYTES # (AUTO) 0.3 X 10^3 (0.0-1.0); MONOCYTES % (AUTO) 4 % (0-12); NEUTROPHILS # (AUTO) 6.3 X 10^3 (1.8-7.8); NEUTROPHILS % (AUTO) 84 % (42-75); PLATELET COUNT 241 10^3/uL (130-400); WHITE BLOOD COUNT 7.6 10^3/uL (4.3-11.0)
[2021-03-21 16:16] LABS: ALBUMIN 4.2 GM/DL (3.2-4.5)
[2021-03-21 16:17] LABS: CALCIUM 8.7 MG/DL (8.5-10.1)
[2021-03-21 16:18] LABS: TOTAL PROTEIN 6.7 GM/DL (6.4-8.2)
[2021-03-21 16:20] LABS: BILIRUBIN,TOTAL 0.7 MG/DL (0.1-1.0)
[2021-03-21 16:22] LABS: CREATININE SERUM 0.64 MG/DL (0.60-1.30)
[2021-03-21] MEDS ORDERED: LORazepam INJ 2 MG/ML (ATIVAN) VIAL IVP PRN (16:45)
[2021-03-21 16:46] LABS: BILIRUBIN,URINE NEGATIVE (NEGATIVE); CLARITY,URINE CLEAR; COLOR,URINE YELLOW; GLUCOSE, URINE (UA) NEGATIVE (NEGATIVE); KETONES,URINE NEGATIVE (NEGATIVE); LEUKOCYTE ESTERASE ,URINE NEGATIVE (NEGATIVE); NITRITE,URINE NEGATIVE (NEGATIVE); PH,URINE 7.5 (5-9); PROTEIN,URINE NEGATIVE (NEGATIVE)
--- NOTE | 2021-03-21 16:52 | Diagnostic Imaging Report ---
PROCEDURE: US Gallbladder. TECHNIQUE: Multiple real-time grayscale images were obtained over the right upper quadrant in various projections. INDICATION: Liver appears normal. Portal vein is patent with hepatopetal flow. The gallbladder is clear with no stones or wall thickening. The common duct is not dilated. The pancreas appears normal. Aorta and IVC appear normal. Right kidney measures 10.5 cm length and appears normal. There is no ascites. IMPRESSION: Unremarkable gallbladder ultrasound Dictated by: Dictated on workstation # [id number]
[2021-03-21 17:09] LABS: AMORPHOUS SEDIMENT,UR MOD AMOR PHOSPHATE /LPF; BACTERIA,URINE TRACE /HPF; WBC,URINE 0-2 /HPF
[2021-03-21 17:11] LABS: AMPHETAMINE SCREEN, URINE NEGATIVE (NEGATIVE); BARBITURATE SCREEN URINE NEGATIVE (NEGATIVE); BENZODIAZEPINES SCREEN URINE NEGATIVE (NEGATIVE); CANNABINOID SCREEN, URINE POSITIVE (NEGATIVE); COCAINE SCREEN URINE NEGATIVE (NEGATIVE); METHADONE STAT NEGATIVE (NEGATIVE); METHAMPHETAMINE SCREEN URINE S NEGATIVE (NEGATIVE); OPIATE SCREEN URINE NEGATIVE (NEGATIVE); OXYCODONE STAT NEGATIVE (NEGATIVE); PROPOXYPHENE STAT NEGATIVE (NEGATIVE); TRICYCLIC ANTIDEPRESSANTS SCRE NEGATIVE (NEGATIVE)
[2021-03-21] MEDS ORDERED: PROC-1 PO (17:18)
== END 2021-03-21 17:29 | disposition home or self-care (01) ==
LOC: EDUNIT# 15:42 → ER 15:46
DX: R11.2 Nausea with vomiting, unspecified (principal); R10.13 Epigastric pain; R10.11 Right upper quadrant pain
CPT/HCPCS: 36415; 76705; 80053; 80306; 81000; 83690; 84703; 85025

== ENCOUNTER 2021-04-26 07:06 | Emergency (ER) | payer OTHER ==
[~2021-04-26] VITALS: Ht 162 cm; Wt 45.0 kg
[~2021-04-26 07:06] MED LIST changes: +PROC-1 PO
[2021-04-26 07:26] LABS: BASOPHILS % (AUTO) 0 % (0-10); EOSINOPHILS % (AUTO) 0 % (0-10); HEMATOCRIT 39 % (35-52); HEMOGLOBIN 12.7 g/dL (11.5-16.0); LYMPHOCYTES # (AUTO) 1.3 10^3/uL (1.0-4.0); LYMPHOCYTES % (AUTO) 11 % (12-44); MEAN CORPUSCULAR HEMOGLOBIN 28 pg (25-34); MEAN CORPUSCULAR HGB CONC 33 g/dL (32-36); MEAN CORPUSCULAR VOLUME 85 fL (80-99); MEAN PLATELET VOLUME 8.9 fL (9.0-12.2); MONOCYTES # (AUTO) 0.5 10^3/uL (0.0-1.0); MONOCYTES % (AUTO) 5 % (0-12); NEUTROPHILS # (AUTO) 9.3 10^3/uL (1.8-7.8); NEUTROPHILS % (AUTO) 83 % (42-75); PLATELET COUNT 430 10^3/uL (130-400); WHITE BLOOD COUNT 11.2 10^3/uL (4.3-11.0)
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
[2021-04-26] MEDS ORDERED: FAMOTIDINE 20MG/2ML IV (PEPCID) IVP ONE (07:30)
[2021-04-26] MEDS ORDERED: LACTATED RINGERS 1,000 ML IV ONE ×2 (07:30→08:45)
[2021-04-26] MEDS ORDERED: ONDANSETRON 4 MG/2 ML (SDV) Z0FRAN IVP ONE (07:30)
[2021-04-26 07:36] LABS: ALBUMIN 4.8 GM/DL (3.2-4.5); CHLORIDE 99 MMOL/L (98-107); POTASSIUM 3.3 MMOL/L (3.6-5.0); SODIUM 136 MMOL/L (135-145)
[2021-04-26 07:38] LABS: CALCIUM 9.8 MG/DL (8.5-10.1)
[2021-04-26 07:39] LABS: GLUCOSE 103 MG/DL (70-105); TOTAL PROTEIN 7.5 GM/DL (6.4-8.2)
[2021-04-26 07:40] LABS: CARBON DIOXIDE 21 MMOL/L (21-32)
[2021-04-26 07:41] LABS: BILIRUBIN,TOTAL 1.3 MG/DL (0.1-1.0)
[2021-04-26 07:42] LABS: ALKALINE PHOSPHATASE 61 U/L (40-136)
[2021-04-26 07:43] LABS: CREATININE SERUM 0.86 MG/DL (0.60-1.30); GFR ESTIMATED 97
[2021-04-26 07:44] LABS: BUN/CREATININE RATIO 26
[2021-04-26 07:46] LABS: ALANINE AMINOTRANSFERASE 12 U/L (0-55); MAGNESIUM 2.3 MG/DL (1.6-2.4)
[2021-04-26 08:01] LABS: CLARITY,URINE SL CLOUDY; COLOR,URINE YELLOW; GLUCOSE, URINE (UA) NEGATIVE (NEGATIVE); KETONES,URINE 3+ (NEGATIVE); LEUKOCYTE ESTERASE ,URINE NEGATIVE (NEGATIVE); NITRITE,URINE NEGATIVE (NEGATIVE); PROTEIN,URINE TRACE (NEGATIVE)
[2021-04-26 08:07] LABS: TSH (THYROID ANALYZER) 0.89 UIU/ML (0.35-4.94)
[2021-04-26 08:25] LABS: AMPHETAMINE SCREEN, URINE NEGATIVE (NEGATIVE); BARBITURATE SCREEN URINE NEGATIVE (NEGATIVE); BENZODIAZEPINES SCREEN URINE NEGATIVE (NEGATIVE); CANNABINOID SCREEN, URINE POSITIVE (NEGATIVE); COCAINE SCREEN URINE NEGATIVE (NEGATIVE); METHADONE STAT NEGATIVE (NEGATIVE); METHAMPHETAMINE SCREEN URINE S NEGATIVE (NEGATIVE); OPIATE SCREEN URINE NEGATIVE (NEGATIVE); OXYCODONE STAT NEGATIVE (NEGATIVE); TRICYCLIC ANTIDEPRESSANTS SCRE NEGATIVE (NEGATIVE)
[2021-04-26 08:26] LABS: BACTERIA,URINE FEW /HPF; BILIRUBIN,URINE 1+ (NEGATIVE); PROPOXYPHENE STAT NEGATIVE (NEGATIVE); RBC,URINE 0-2 /HPF; WBC,URINE RARE /HPF
[2021-04-26] MEDS ORDERED: ANTACID SUSP 30 ML UDC (MYLANTA) PO ONE (09:15)
[2021-04-26] MEDS ORDERED: HALOPERIDOL 5 MG/ML (HALDOL) VIAL IV ONE (09:15)
[2021-04-26] MEDS ORDERED: diphenhydrAMINE 50 MG/ML INJ (BENADRYL) IVP ONE (09:15)
[2021-04-26] MEDS ORDERED: LIDOCAINE 2% VISCOUS 15 ML UDC PO ONE (09:15)
[2021-04-26] MEDS ORDERED: ONDA4TAB11 SL (10:41)
[2021-04-26] MEDS ORDERED: PROM12.511 PO (10:41)
[2021-04-26 10:52] VITALS: BP 125/77
== END 2021-04-26 10:52 | disposition home or self-care (01) ==
LOC: EDUNIT# 07:06 → ER 07:08
DX: R11.2 Nausea with vomiting, unspecified (principal); R10.13 Epigastric pain; E87.6 Hypokalemia; R82.5 Elevated urine levels of drugs, medicaments and biological substances
CPT/HCPCS: 80053; 80306; 81000; 83690; 83735; 84443; 84703 ×2; 85025; 86141; 99284; G0480; 36415; 80320